=== PATIENT | male | born 1990 | race Caucasian/White ===

== ENCOUNTER 2019-12-04 20:46 | Day surgery (SDC) | payer SELFPAY ==
[~2019-12-04] VITALS: Ht 185.4 cm; Wt 93.6 kg
[2019-12-04] MEDS ORDERED: HYDROcodone/APAP 5/325 TABLET ONE (21:16)
[2019-12-04] MEDS ORDERED: ONDANSETRON ODT 4 MG ONE (21:16)
[2019-12-04] MEDS ORDERED: DIPH,PERTUSS(ACELL),TET VAC/PF 0.5 ML IM-VACC ONE ×2 (21:16→21:30)
--- NOTE | 2019-12-04 21:22 | NUR ---
RAD COMPLETED. PT MEDICATED FOR PAIN PER MAR
[2019-12-04] MEDS ORDERED: CEFAZOLIN PMX 1GM/50ML 50 ML IV ONE (21:30)
[2019-12-04] MEDS ORDERED: ONDANSETRON ODT 4 MG PO ONE (21:30)
[2019-12-04] MEDS ORDERED: HYDROcodone/APAP 5/325 TABLET PO ONE (21:30)
[2019-12-04] MEDS ORDERED: BUPIVACAINE 0.25% INFIL ONE (21:30)
[2019-12-04] MEDS ORDERED: ONDANSETRON 2MG/ML, 2ML IVPush ONE (21:30)
[2019-12-04] MEDS ORDERED: MORPHINE SULFATE 4 MG/ML, 1ML IVPush ONE (21:30)
[2019-12-04] MEDS ORDERED: LIDOCAINE 1%, 10ML INFIL ONE (21:30)
[2019-12-04] MEDS ORDERED: SODIUM CHLORIDE FLUSH 10ML SYR IVF ONE (21:30)
[2019-12-04] MEDS ORDERED: MORPHINE SULFATE 4 MG/ML, 1ML ONE (21:37)
[2019-12-04] MEDS ORDERED: LIDOCAINE 1%-EPI 1:100K, 20ML ONE (21:43)
[2019-12-04] MEDS ORDERED: BUPIVACAINE 0.25% ONE (21:43)
[2019-12-04 21:46] LABS: BASOPHILS # (AUTO) 0.04 x10^3/uL (0-0.1); BASOPHILS % (AUTO) 1 % (0-1); EOSINOPHILS # (AUTO) 0.24 x10^3/uL (0-0.4); EOSINOPHILS % (AUTO) 3 % (1-7); LYMPHOCYTES # (AUTO) 2.28 x10^3/uL (1-3.4); LYMPHOCYTES % (AUTO) 32 % (22-44); MD NO; MEAN CORPUSCULAR HEMOGLOBIN 32.3 pg (27.5-34.5); MEAN CORPUSCULAR HGB CONC 33.9 g/dL (33.2-36.2); MEAN CORPUSCULAR VOLUME 95.4 fL (81-97); MEAN PLATELET VOLUME 10.1 fL (7.4-10.4); MONOCYTES # (AUTO) 0.67 x10^3/uL (0.2-0.8); MONOCYTES % (AUTO) 9 % (2-9); NEUTROPHILS # (AUTO) 3.88 x10^3/uL (1.8-6.8); NEUTROPHILS % (AUTO) 55 % (42-75); PLATELET COUNT 206 x10^3/uL (130-400); RED CELL DISTRIBUTION WIDTH 12.8 % (9.4-14.8)
--- NOTE | 2019-12-04 21:51 | NUR ---
REPORT RECEIVED FROM CAESAR DHILLON RN.
[2019-12-04 21:57] LABS: ALBUMIN 4.3 g/dL (3.4-5.0); ANION GAP 6 mmol/L (5-15); CALCIUM 8.9 mg/dL (8.5-10.1); CHLORIDE 104 mmol/L (98-107); CREATININE 1.29 mg/dL (0.7-1.3)
[2019-12-04] MEDS ORDERED: ONDANSETRON 2MG/ML, 2ML ONE (21:57)
[2019-12-04] MEDS ORDERED: CEFAZOLIN PMX 1GM/50ML 50 ML ONE (21:58)
[2019-12-04] MEDS ORDERED: OMNIPAQUE 350 MG/ML, 100ML BOTTLE ONE (23:07)
[2019-12-04 23:24] VITALS: BP 124/53
--- NOTE | 2019-12-04 23:24 | NUR ---
PT RESTING ON GUMARVIN WITH FAMILY AT BS. CALL LIGHT WITHIN REACH.
[2019-12-05] MEDS ORDERED: BUPIVACAINE/PF-EPI 0.5% 1:200K ONE (00:22)
[2019-12-05] MEDS ORDERED: HEPARIN 1,000 UNITS/ML, 30ML ONE (00:22)
[2019-12-05] MEDS ORDERED: PROTAMINE SULFATE 10 MG/ML, 5ML ONE (00:23)
[2019-12-05] MEDS ORDERED: HEPARIN 1,000 UNITS/ML, 30ML IVPush ONE (00:33)
[2019-12-05] MEDS ORDERED: BUPIVACAINE/PF-EPI 0.5% 1:200K IM ONE (00:34)
[2019-12-05] MEDS ORDERED: FENTANYL PF 250 MCG/5ML ONE (00:40)
[2019-12-05] MEDS ORDERED: MIDAZOLAM 1 MG/ML, 2ML ONE (00:40)
[2019-12-05] MEDS ORDERED: DEXAMETHASONE 4 MG/ML, 1ML ONE (00:41)
[2019-12-05] MEDS ORDERED: ONDANSETRON 2MG/ML, 2ML ONE (00:41)
[2019-12-05] MEDS ORDERED: SUCCINYLCHOLINE 20 MG/ML, 10ML ONE (00:41)
[2019-12-05] MEDS ORDERED: PROPOFOL 10 MG/ML, 20ML ONE (00:41)
[2019-12-05] MEDS ORDERED: EPHEDRINE 50 MG/ML, 1ML ONE (00:41)
[2019-12-05] MEDS ORDERED: CEFAZOLIN 1,000 MG ONE (00:41)
[2019-12-05] MEDS ORDERED: MEPERIDINE/PF 25MG/ML,1ML IVPush PRN (01:30)
[2019-12-05] MEDS ORDERED: FENTANYL PF 100 MCG/2ML IV PRN (01:30)
[2019-12-05] MEDS ORDERED: HALOPERIDOL 5 MG/ML IV PRN (01:30)
[2019-12-05] MEDS ORDERED: HYDROmorphone 2 MG/ML, 1ML IVPush PRN (01:30)
[2019-12-05] MEDS ORDERED: OXYcodone 5 MG/5 ML ORAL.SOL UDC PO PRN (01:30)
[2019-12-05] MEDS ORDERED: hydrALAzine 20 MG/ML, 1ML IV PRN (01:30)
[2019-12-05] MEDS ORDERED: ACETAMINOPHEN 325 MG TABLET PO PRN (01:30)
[2019-12-05] MEDS ORDERED: ACETAMINOPHEN 325 MG TABLET ONE (01:52)
[2019-12-05] MEDS ORDERED: ACETAMINOPHEN 650 MG/20.3 ML UDC ONE (01:52)
[2019-12-05] MEDS ORDERED: HYDR-3240 PO (02:47)
[2019-12-05] MEDS ORDERED: HYDROcodone/APAP 5/325 TABLET PO PRN (04:00)
[2019-12-05] MEDS ORDERED: DIPHENHYDRAMINE 50 MG/ML, 1ML IVPush PRN (04:00)
[2019-12-05] MEDS ORDERED: KETOROLAC 30 MG/1 ML IV PRN (04:00)
[2019-12-05] MEDS ORDERED: MORPHINE SULFATE 4 MG/ML, 1ML IVPush PRN (04:00)
[2019-12-05] MEDS ORDERED: LACTATED RINGERS 1,000 ML IV SCH (04:00)
[2019-12-05] MEDS ORDERED: ONDANSETRON 2MG/ML, 2ML IVPush PRN (04:00)
[2019-12-05] MEDS ORDERED: ENOXAPARIN 40 MG/0.4 ML SQ SCH (04:00)
== END 2019-12-05 05:42 | disposition home or self-care (01) ==
LOC: ED 12-05 00:01 → SDC 12-05 02:22 → 4NE 12-05 02:22 → ED 12-05 02:22 → 4NE 12-05 02:24 → UNDOADMOB 12-05 02:27 → SDC 12-05 05:42 → UNDODISOB 12-05 05:42
PROVIDERS: ATTEND Emergency Medicine
DX: S65.012A Laceration of ulnar artery at wrist and hand level of left arm, initial encounter (principal); S66.822A Laceration of other specified muscles, fascia and tendons at wrist and hand level, left hand, initial encounter; Z23 Encounter for immunization; Z79.899 Other long term (current) drug therapy; W01.110A Fall on same level from slipping, tripping and stumbling with subsequent striking against sharp glass, initial encounter; Y93.89 Activity, other specified; Y92.39 Other specified sports and athletic area as the place of occurrence of the external cause; Y99.8 Other external cause status
CPT/HCPCS: 35207; 36415; 73110; 73206; 80048; 82040; 85025; 90471; 90715; C1757; J0330; J0690; J1100; J1644; J1650; J2250; J2270; J2405; J2704; J2720; J3010; Q0162; Q9967; G0378; G0008

== ENCOUNTER 2019-12-07 01:55 | Emergency (ER) | payer SELFPAY ==
[~2019-12-07] VITALS: Ht 185.4 cm; Wt 94.0 kg
[~2019-12-07 01:55] MED LIST: HYDR-3240 PO
[2019-12-07 02:00] VITALS: BP 129/63
[2019-12-07] MEDS ORDERED: FINA1TAB16 PO (02:55)
--- NOTE | 2019-12-07 02:55 | NUR ---
PATIENT PRESENTED WITH C/O OF INCREASED WRIST PAIN AFTER ULNAR ARTERY REPAIR PROCEDURE WAS PERFORMED ON TUESDAY. PROVIDED PT WITH GOWN, CALL LIGHT WITHIN REACH. AWAITING ERP FOR EVAL AND ORDERS
== END 2019-12-07 03:49 | disposition home or self-care (01) ==
LOC: ED 02:49
DX: R20.2 Paresthesia of skin (principal)
CPT/HCPCS: 99281